=== PATIENT | female | born 1980 | race Asian ===

== ENCOUNTER 2017-11-21 12:39 | Outpatient (CLI) | payer BC ==
--- NOTE | 2017-11-21 14:34 | Diagnostic Imaging Report ---
Indication: Pain Findings: 3 views of the right elbow were obtained. No acute fractures, malalignment, erosions or periostitis are identified. Bone mineralization is within normal limits. Soft tissues are unremarkable. Impression: Negative examination of the elbow.
== END 2017-11-21 14:39 | disposition home or self-care (01) ==
LOC: RAD 12:39
DX: M25.521 Pain in right elbow (principal)

== ENCOUNTER → 2017-12-28 | Outpatient (CLI) | payer BC ==
--- NOTE | 2017-12-28 15:34 | Diagnostic Imaging Report ---
Indication: Cough Technique: XRAY Chest 2v Comparison: None Findings: Heart size and mediastinal contours are within normal limits. There is no focal airspace consolidation, pleural effusion or pneumothorax. No acute osseous abnormality is identified. Impression: Clear lungs.
== END | disposition home or self-care (01) ==
LOC: RAD 15:01
DX: R05 Cough (principal)
CPT/HCPCS: 71046